=== PATIENT | male | born 1990 | race Caucasian/White ===

== ENCOUNTER 2021-08-31 11:01 | Emergency (ER) | payer SELFPAY ==
[~2021-08-31 11:01] MED LIST: BACTRIM DS TAB1 EACH PO; BACTROBAN OINT22 GM EXT; ERYTHROMYCIN O3.5 GM OU; IBUPROFEN600 MG PO; IBUPROFEN800 MG PO; KEFLEX CAP 500500 MG PO; NORCO 5-325 TA1 EACH PO; PENVEE K 500 M500 MG PO; PROTONIX40 MG PO; ZOFRAN4 MG PO
[2021-08-31] MEDS ORDERED: NAPROXEN500 MG PO (14:14)
== END 2021-08-31 14:29 | disposition home or self-care (01) ==
LOC: ER1 11:01
DX: S43.141A Inferior dislocation of right acromioclavicular joint, initial encounter (principal); V89.2XXA Person injured in unspecified motor-vehicle accident, traffic, initial encounter
CPT/HCPCS: 71046; 73000; 73030; 73060; 99283